=== PATIENT | female | born 1990 | race African-American/Black ===

== ENCOUNTER 2019-01-21 20:48 | Emergency (ER) | payer SELFPAY ==
[~2019-01-21] VITALS: Ht 154.9 cm; Wt 74.8 kg
[2019-01-21 20:55] VITALS: BP 109/59
--- NOTE | 2019-01-21 21:22 | PHYS DOC ---
Past Medical History Past Medical History: No Pertinent History Past Surgical History: Alcohol Use: None Drug Use: None Adult General Chief Complaint Chief Complaint: MENSTRUAL PAIN/CRAMPS HPI HPI Patient is a 29 year old female who presents to the emergency department, accompanied by her children, with request for a work note. Patient states she had there missed classes today due to severe menstrual cramps. She states that she took some Tylenol milligrams went away. She denies any complaints at this time. She denies any pain at this time. Patient's chief complaint is need for a work/school excuse. Review of Systems Review of Systems Constitutional: Denies fever or chills [] HENT: Denies nasal congestion or sore throat [] Respiratory: Denies cough or shortness of breath [] Cardiovascular: No additional information not addressed in HPI [] GI: Denies abdominal pain, nausea, vomiting, or diarrhea [] Musculoskeletal: Denies back pain Integument: Denies rash or skin lesions [] Neurologic: Denies headache Complete systems were reviewed and found to be within normal limits, except as documented in this note. Allergies Allergies Allergies Coded Allergies Type Severity Reaction Last Updated Verified No Known Drug Allergies 01/21/19 No Physical Exam Physical Exam Constitutional: Well developed, well nourished, no acute distress, non-toxic appearance. [] HENT: Normocephalic, atraumatic, bilateral external ears normal,nose normal. [] Eyes: PERRLA, no discharge. [] Neck: Normal range of motion, no stridor. [] Lungs & Thorax: Respirations even and unlabored, no retractions, no respiratory distress Skin: Warm, dry, no erythema, no rash. [] Extremities: ROM intact Neurologic: Alert and oriented X 3, no focal deficits noted. [] Psychologic: Affect normal, judgement normal, mood normal. [] Current Patient Data Vital Signs Vital Signs Date Time Temp Pulse Resp B/P (MAP) Pulse Ox O2 Delivery O2 Flow Rate FiO2 01/21/19 20:55 98.0 95 16 109/59 (76) 99 Room Air 98.0 EKG EKG [] Radiology/Procedures Radiology/Procedures [] Course & Med Decision Making Course & Med Decision Making Pertinent Labs and Imaging studies reviewed. (See chart for details) PT presented with no acute complaints. Pt requested a work/school excuse because she missed class earlier due to menstrual cramps that resolved after taking Tylenol. NO medical emergency present after MSE. Pt eloped after speaking with registration. [] Dragon Disclaimer Dragon Disclaimer This electronic medical record was generated, in whole or in part, using a voice recognition dictation system. Departure Departure Impression: Primary Impression: Encounter for medical screening examination Disposition: HOME, SELF-CARE (eloped) Condition: STABLE [employer] Jan 21, 2019 21:22
== END 2019-01-21 21:24 | disposition home or self-care (01) ==
LOC: ER 20:48
DX: N94.6 Dysmenorrhea, unspecified (principal)
CPT/HCPCS: 99281